=== PATIENT | female | born 1965 | race Caucasian/White ===

== ENCOUNTER 2016-09-10 06:57 | Day surgery (SDC) | payer OTHER ==
[~2016-09-10 06:57] MED LIST: RINGERS SOLUTION,LACTATED 1,000 ML IV PRN; ceFAZolin SODIUM 2 GM in DEXTROSE 5 % IN WATER 50 ML IV PRN
--- OUTSIDE RECORDS SUMMARY | 2016-09-10 07:00 | XMS REPORT | Continuity of Care Document ---
:1965 Author Organization [facility] ([facility]) Address [address] [place] [address] Phone [phone] Care Team Providers Name Role Phone CallieJoon Primary Care Provider [phone] Source Comments This disclosure is being made pursuant to the Care Everywhere program, applicable federal and state laws, and may not contain all informaitonavailable regarding this patient.[facility] ([facility]) Active Allergies and Adverse Reactions Allergen Noted Date Severity Reactions Comments Penicillins Urticaria (Hives) Current Medications Prescription Sig. Disp. Refills Start Date End Date Status DULoxetine Take 30 mg by Active (CYMBALTA) 30 mg mouth daily. capsule traMADol 50 mg Take 50 mg by Active tablet mouth 4 times daily as needed. loratadine 10 mg Take 10 mg by Active tablet mouth daily. MULTIVITAMIN PO Take by mouth. Active fluticasone 50 use 2 Sprays into 16 g 3 09/16/2011 Active mcg/Actuation nasal the nose daily. spray Indications: Allergic Rhinitis HYDROcodone-acetami Take 1 Tab by Active nophen 5-500 mg per mouth every 6 tablet hours as needed. diclofenac 75 mg EC Take 75 mg by Active tablet mouth 2 times daily. hydrocortisone insert 1 10 Suppository 1 10/06/2011 Active acetate 25 mg Suppository suppository rectally daily as needed. Indications: Hemorrhoids lactulose 10 g/15 Take 30 mL by 300 mL 3 10/06/2011 Active mL solution mouth 3 times daily. Indications: Constipation cetirizine (ZYRTEC) Take 10 mg by Active 10 mg tablet mouth daily. Active Problems Problem Noted Date Shoulder pain 10/10/2012 Allergic rhinitis 09/16/2011 Healthcare maintenance 09/16/2011 Arthralgia 09/16/2011 Numbness and tingling in hands 09/16/2011 Obesity 09/16/2011 Abdominal pain, unspecified site 09/19/2005 Social History Tobacco Use Types Packs/Day Years Used Date Former Smoker Smokeless Tobacco: Never Used Alcohol Use Drinks/Week oz/Week Comments No Last Filed Vital Signs Vital Sign Reading Time Taken Blood Pressure 116/65 10/10/2012 11:28 AM CDT Pulse 59 10/10/2012 11:28 AM CDT Temperature 36.4 C (97.5 F) 10/10/2012 11:28 AM CDT Respiratory Rate 16 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
[2016-09-10 07:19] LABS: Hematocrit 40.3 % (37.0-47.0); Hemoglobin 13.2 gm/dL (12.5-16.0); Mean Cell Volume 96.9 fl (78-100); Mean Corpuscular Hemoglobin 31.7 pg (27-31); Mean Corpuscular Hgb Conc 32.8 g/dl (32-36); Mean Platelet Volume 9.8 fl (6.0-9.5); Neutrophil # 3.4 K/mm3 (1.3-6.0); Neutrophil % 53.6 % (42-75.0); Platelet Count 218 K/mm3 (150-450); Red Blood Count 4.16 M/mm3 (4.2-5.4); Red Cell Distribution Width 12.7 % (11.5-14.0); White Blood Count 6.4 K/mm3 (4.0-10.5)
[2016-09-10 07:31] LABS: Albumin * 3.4 gm/dl (3.4-5.0); Anion Gap 11.8 mmol/L (6.8-13.8); BUN/Creatinine Ratio 12.5 (9.0-21.6); Bilirubin, Total 0.4 mg/dL (0.0-1.1); Ca. Corrected For Albumin 8.4 mg/dL (8.4-10.2); Calcium * 8.2 mg/dL (7.9-10.9); Carbon Dioxide 27.4 mmol/L (24-32.6); Potassium 4.2 mmol/L (3.4-4.6); Total Protein 6.7 gm/dL (6.2-8.2)
[2016-09-10] MEDS ORDERED: BUPIVACAINE HCL 50 ML VIAL IJ ONE ×2 (08:20)
[2016-09-10] MEDS ORDERED: RINGERS SOLUTION,LACTATED 1,000 ML IV ONE ×3 (09:15→13:04)
[2016-09-10] MEDS ORDERED: RINGERS SOLUTION,LACTATED 1,000 ML IV PRN (13:39)
[2016-09-10] MEDS ORDERED: IBUPROFEN 800 MG TABLET PO PRN (13:39)
[2016-09-10] MEDS ORDERED: oxyCODONE HCL/ACETAMINOPHEN 1 TAB TABLET PO PRN (13:39)
--- NOTE | 2016-09-10 14:04 | OR ---
Operative Report - Dictated Report Narrative: DATE OF PROCEDURE: 09/10/2016 PROCEDURE: 1. Total laparoscopic hysterectomy, right salpingo-oophorectomy and left salpingectomy 2. Lysis of adhesion (60 min) 3. Diagnostic cystoscopy. ANESTHESIA: General, endotracheal intubation. PREOPERATIVE DIAGNOSES: 1. Chronic pelvic pain post uterine ablation. 2. RLQ pain. 3. Uterine fibroids. 4. Adenomyosis. 5. S/P Novasure uterine ablation for history of menorrhagia. 5. S/P sections x 2 and tubal ligation. 6. S/P laparoscopic cholecystectomy. 7. S/P Left inguinal hernia repair with mesh. 8. History of perianal fistula with recent outbreak. POSTOPERATIVE DIAGNOSES: 1. Chronic pelvic pain post uterine ablation. 2. RLQ pain. 3. Uterine fibroids. 4. Adenomyosis. 5. S/P Novasure uterine ablation for history of menorrhagia. 5. S/P sections x 2 and tubal ligation. 6. S/P laparoscopic cholecystectomy. 7. S/P Left inguinal hernia repair with mesh. 8. History of perianal fistula with recent outbreak. 9. Left ovarian simple cyst. 10. Dense pelvic adhesions. SURGEON: Елена Austin M.D. MACHINE PROGRAMMER: Kim HarrisBridget) FINDINGS: 1. Uterus was normal in size, but with uterine cavity adhesion due Novasure ablation. Uterus was sounded to about 6 cm (limited to cervix only). 2. Left ovary had a simple cyst 2 cm, and right ovary appeared normal. Both fallopian tubes appeared normal, but with signs of tubal ligation. 3. There were dense adhesions in the lower uterine segment and in the nearby broad ligaments. 4. On cystoscopy, the bladder appeared intact and bilateral ureteral jets were seen. SPECIMENS: Uterus, cervix, right ovary and both tubes (removed in one piece) DRAINS: None. URINE OUTPUT: 900 ml BLOOD LOSS: 150 ml INTRAOPARATIVE IV FLUIDS: 3100 ml COMPLICATIONS: None. DESCRIPTION OF PROCEDURE: The patient consented prior to the operation and was taken to the operating room. She was placed on the operating table supine. SCDs were placed on her lower extremities. General anesthesia was induced. Two grams of ancef was given by IV prior to anesthesia induction. She was repositioned in the dorsal lithotomy position. Her right arm was tucked at her side under the drape. Exam under anesthesia revealed a normal size uterus with no adnexal mass. The abdomen was prepped with Chloraprep and the vagina was prepped with Betadine. She was draped in the usual sterile fashion. A time- out procedure was conducted to confirm the correct patient for the correct procedure. After time-out, a Holt catheter was placed into the bladder. A bivalve speculum was placed into the vagina. The vagina and the cervix were prepped with Betadine one more time. The anterior cervix was grasped with a single-tooth tenaculum. The uterus was sounded to 6 cm. A large VCare uterine manipulator was inserted into the cervical canal. The balloon was not inflated. One stitch of 0-Vicryl was placed on cervix for use to secure the VCare cup. The single-tooth tenaculum was removed. Concord speculum was removed. The upper VCare cup was advanced into the vagina to hug the cervix. The suture was tied down to secure the VCare cup. The lower VCare cup was advanced into the vagina to align with the upper VCare cup and to provide pneumoperitoneum for the procedure. The lower VCare cup was fastened to the uterine manipulator. The surgeon then changed gloves and attention was paid to the abdomen. A small vertical incision was made at the upper edge of the umbilicus. A Veress needle was inserted into the abdominal cavity. Intraabdominal placement was confirmed with a saline drop test and with low entry pressure of 4 mmHg. The abdomen was insufflated with CO2 gas to an intraabdominal pressure of 15 mmHg. The Veress needle was removed. A 5 mm trocar with the laparoscope was inserted through the umbilicus incision into the abdomen. Intraabdominal placement was confirmed with the laparoscope. Survey of the entry site revealed no trauma to the underlying structures. Survey of the upper abdomen revealed a normal- appearing liver. The patient was then placed in Trendelenburg position. Three 5 mm trocars were placed in the lower abdomen. A left lower quadrant trocar and a right lower quadrant trocar were both placed 2 cm above and 2 cm medial to the anterior superior iliac spine to avoid the inferior epigastric vessels. A third trocar was placed suprapubically in the midline. All trocars were placed under the direct visualization of the laparoscope. Survey of the pelvis revealed the findings noted above. Attention was now turned to the left side. The left fallopian tube was elevated. The mesosalpinx was divided with the Thunderbeat. The division was carried to the cornual region. The uteroovarian ligament was divided with the Thunderbeat and the division was carried on the broad ligament to the round ligament. The course of the left ureter was not identified, but believed to be away from the surgical field. The round ligament incision was into the anterior leaf and the posterior leaf of the broad ligament. Anterior leaf of the broad ligament was dissected down towards the bladder uterine reflection. The posterior leaf of the broad ligament was dissected down towards the uterosacral ligament. Dense adhesions were encountered near the uterine vessel and in the lower uterine segment. These were dissected carefully. The left uterine vessel was isolated and divided with the Thunderbeat. The lower uterine segment was dissected to free the bladder down. The cardinal ligament complex was divided with the Thunderbeat to the level of vaginal cervical junction. Attention was now turned to the right side. The right fallopian tube was elevated. The right IP ligament was divided with the Thunderbeat. The division was carried on the broad ligament to the round ligament. At this point, one of the Thunderbeat blade broke off and this was removed and replaced with a new Thunderbeat. The course of the right ureter was identified and protected. The round ligament incision was into the anterior leaf and the posterior leaf of the broad ligament. The anterior leaf of the broad ligament was dissected down towards the bladder uterine reflection and to meet with the opposite dissection point at the midline. The posterior leaf of the broad ligament was dissected down towards the uterosacral ligament. The right uterine vessel was isolated, and divided with the Thunderbeat. The cardinal ligament complex was divided with the Thunderbeat to the level of vaginal cervical junction. The VCare cup had delineated the vaginal fornix well. The Thunderbeat was used to make an anterior colpotomy over the VCare cup groove. Entry into the vagina was without complication. A circumferential incision was made along the vaginal cervical junction using the VCare cup groove as a guide. Bilateral uterosacral ligament was divided. The cervix was completely divided from the vagina. The surgeon moved to the vaginal area to retrieve the specimen. The VCare uterine manipulator was removed. The cervix with the uterus, right ovary and both tubes were removed through the vagina in one piece. The vagina was packed with 2 moist laps to keep the pneumoperitoneum. The surgeon then changed gloves and attention was paid back to the abdomen. The pelvis was thoroughly irrigated with saline. The vaginal opening was closed with 0 Vicryl Endoknot suture in a continuous and transverse fashion using intracorporeal suturing technique and extracorporeal knot tying. The uterosacral ligament at each side was sutured to the vaginal cuff corner for cuff support. The pelvis was irrigated and there was hemostasis in all vessel pedicles. Extra fluid was suctioned out from the abdomen and pelvis. Two small pieces of Interceed was placed over the vaginal cuff and right pelvic side wall for adhesion prevention. The patient was taken out of Trendelenburg Three lower abdominal trocars were removed. The abdomen was deflated. The trocar at the umbilicus was removed with the laparoscope. The laparoscopic incision was closed with 4-0 Monocryl suture and the skin was covered with Steri-Strips. The incision was infiltrated with 2 to 3 cc of 0.25% Marcaine for post op pain management. Attention was now paid to a diagnostic cystoscopy. Vaginal packing was removed and the Holt catheter was removed. A 30-degree cystoscope was introduced through the urethra into the bladder. Exam of the bladder revealed the bladder was intact. There were urine jets coming out from the left as well as the right ureteral orifice, confirming the integrity of ureters. The cystoscope was removed. The Holt catheter was not replaced. The patient tolerated the procedure well. All counts were correct and the patient was taken to the recovery room in stable condition. Елена Austin MD
[2016-09-10] MEDS ORDERED: HYDROcodone/ACETAMINOPHEN 1 EACH TABLET PO PRN (16:18)
[2016-09-10 17:41] VITALS: BP 128/56
== END 2016-09-10 06:58 | disposition home or self-care (01) ==
LOC: AMB 06:57
PROVIDERS: ATTEND Obstetrics & Gynecology
PROC: 0UTC7ZZ Resection of Cervix, Via Natural or Artificial Opening (ICD-10-PCS; 2016-09-10)
PROC: 0UT0FZZ Resection of Right Ovary, Via Natural or Artificial Opening With Percutaneous Endoscopic Assistance (ICD-10-PCS; 2016-09-10)
PROC: 0UT7FZZ Resection of Bilateral Fallopian Tubes, Via Natural or Artificial Opening With Percutaneous Endoscopic Assistance (ICD-10-PCS; 2016-09-10)
PROC: 0UN44ZZ Release Uterine Supporting Structure, Percutaneous Endoscopic Approach (ICD-10-PCS; 2016-09-10)
PROC: 0UN94ZZ Release Uterus, Percutaneous Endoscopic Approach (ICD-10-PCS; 2016-09-10)
PROC: 0UT9FZZ Resection of Uterus, Via Natural or Artificial Opening With Percutaneous Endoscopic Assistance (ICD-10-PCS; principal; 2016-09-10 08:00)
DX: D25.1 Intramural leiomyoma of uterus (principal); N80.0 Endometriosis of uterus; N83.292 Other ovarian cyst, left side; N73.6 Female pelvic peritoneal adhesions (postinfective); Z68.38 Body mass index [BMI] 38.0-38.9, adult

== ENCOUNTER 2016-12-16 09:45 | Day surgery (SDC) | payer OTHER ==
[~2016-12-16 09:45] MED LIST changes: -ceFAZolin SODIUM 2 GM in DEXTROSE 5 % IN WATER 50 ML IV PRN
--- OUTSIDE RECORDS SUMMARY | 2016-12-16 09:48 | XMS REPORT | Continuity of Care Document ---
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
[2016-12-16] MEDS ORDERED: ceFAZolin SODIUM 1 GM VIAL IV ONE ×3 (10:53→11:35)
[2016-12-16] MEDS ORDERED: RINGERS SOLUTION,LACTATED 1,000 ML IV ONE (11:10)
[2016-12-16] MEDS ORDERED: BUPIVACAINE HCL/EPINEPHRINE 50 ML VIAL IJ ONE ×2 (11:40→11:45)
[2016-12-16] MEDS ORDERED: RINGERS SOLUTION,LACTATED 1,000 ML IV PRN (12:27)
[2016-12-16] MEDS ORDERED: oxyCODONE HCL/ACETAMINOPHEN 1 TAB TABLET PO ONE (12:27)
[2016-12-16 13:56] VITALS: BP 110/69
--- NOTE | 2016-12-16 15:07 | OR ---
Operative Report - Dictated Report Narrative: OPERATIVE REPORT DATE OF OPERATION: 12/16/2016 PREOPERATIVE DIAGNOSIS: History of fistula in ano. No recent dedicated colon studies POSTOPERATIVE DIAGNOSIS: Normal colonoscopy. Chronic-appearing anal fissure OPERATION: Colonoscopy. Rectal exam under anesthesia with saucerization of anal fissure SURGEON: Hugh Lino MD ANESTHESIA: Gen. endotracheal Luis M Collins CRNA INDICATIONS FOR PROCEDURE: The patient is a 51-year-old female who was originally seen in September with a history of chronic intermittent draining lesion near the anus. She had a previous operation for fistula in anal with placement of a seton. Her last colonoscopy was in 2005. FINDINGS: Chronic-appearing anal fissure. Very capacious, redundant colon otherwise normal exam to the cecum. No evidence of fistula in ano NARRATIVE OF PROCEDURE: The patient was identified in the holding area, and prior to the administration of anesthetic, a multidisciplinary timeout was observed. 1 g of intravenous Ancef was administered. Gen. endotracheal anesthetic was administered. With the patient in the left lateral position, the perineum was inspected. There was no evidence of pilonidal disease or skin breakdown. The external appearance of the anus was normal. Sphincter tone was good. The previously seen opening anterior and to the left of the midline was seen to be completely healed. On eversion of the anoderm there was a chronic- appearing fissure. The flexible fiberoptic colonoscope was inserted into the rectum which was insufflated with air. The rectal mucosa and submucosal vascular pattern appeared normal, the prep was seen to be complete. The scope was retroflexed and the dentate line inspected. There was an anterior sentinel pile. The scope was then redirected proximally and advanced through the sigmoid colon, up the descending colon, and around the splenic flexure where the triangular haustral architecture of the transverse colon was seen. The scope was advanced across the transverse colon, around the hepatic flexure to the cecum, where the confluence of tenia and the ileocecal valve were identified. The mucosa at this level appeared normal. The scope was then slowly withdrawn in a circular fashion so that all aspects of colonic mucosa were inspected. The colon was very capacious in character and redundant in course, requiring the use of standard reduction maneuvers, gentle external manual compression on the abdomen, and the entire 160 cm length of the scope to reach the cecum. The haustral architecture appeared well preserved throughout with no evidence of external compression. The mucosa and submucosal vascular pattern appeared normal, specifically there was no gross evidence to suggest colitis or inflammatory bowel disease and no AV malformations were seen. No diverticulosis was demonstrated. No polyps were encountered. The scope was gradually withdrawn to the level of the rectum. As much insufflated air as possible was removed. The scope was withdrawn from the patient and this portion of the procedure terminated. The patient was then placed in the prone jackknife position with appropriate padding and monitoring. The buttocks were retracted with tape. The perineum was prepped with Betadine and isolated with sterile towels. The remainder the patient was covered with a sterile disposable drape. A rectal retractor was placed and the open area in the anterior midline was carefully inspected. A probe was used and no evidence of fistula was found. There was some undermining of the mucosal rim distally which might predispose to collection and infection. The fissure was then saucerized using cauterization and curetting. The overhanging distal lip was obliterated. The area was infiltrated with 0.5% Marcaine with epinephrine. All counts were correct. No specimens were submitted. The operative procedure was terminated at this point. The patient was returned to the supine position without incident. The patient tolerated the anesthetic and procedure well without complication and was transferred back to the recovery room awake, extubated, and in stable condition. The patient remained stable throughout a period of postoperative observation. She denied abdominal or anal discomfort, was able to tolerate by mouth intake, and was up without assistance. I shared the operative findings with the patient and she was given copies of the photographs which appear in the medical record. She was discharged home with instructions not to engage in hazardous activity today, but may resume normal activity tomorrow, and advance diet as tolerated. She is to continue those medications as listed in the history and physical exam. She was given a prescription for tramadol 50 mg #30 1 po Q4-6hrs prn pain. She is to use Benefiber and MiraLAX to keep her bowels soft. I suggested sitz baths for discomfort. She has phone numbers to call for uncontrolled pain or bleeding. She'll be contacted by the office for follow-up. RECOMMEND: Colon surveillance would be on a 10 year interval Reviewed and electronically signed
== END 2016-12-16 09:46 | disposition home or self-care (01) ==
LOC: AMB 09:45
PROVIDERS: ATTEND Surgery
PROC: 0DQQXZZ Repair Anus, External Approach (ICD-10-PCS; 2016-12-16)
PROC: 0DJD8ZZ Inspection of Lower Intestinal Tract, Via Natural or Artificial Opening Endoscopic (ICD-10-PCS; principal; 2016-12-16 10:50)
DX: Z12.11 Encounter for screening for malignant neoplasm of colon (principal); M06.9 Rheumatoid arthritis, unspecified; K60.1 Chronic anal fissure; Z87.891 Personal history of nicotine dependence; Z68.41 Body mass index [BMI] 40.0-44.9, adult
CPT/HCPCS: 46940; G0121